=== PATIENT | female | born 1985 | race Caucasian/White ===

== ENCOUNTER 2020-05-29 12:59 | Emergency (ER) | payer BC ==
[2020-05-30] MEDS ORDERED: PHENERGAN 25 MG25 M1 PO (05:50)
== END 2020-05-29 15:45 | disposition home or self-care (01) ==
LOC: ER1 12:59
DX: Z53.21 Procedure and treatment not carried out due to patient leaving prior to being seen by health care provider (principal)

== ENCOUNTER 2020-05-30 03:57 | Emergency (ER) | payer BC ==
[2020-05-30 04:59] LABS: RED BLOOD COUNT 4.72 M/UL (4.00-5.10)
[2020-05-30 05:25] LABS: BUN/CREATININE RATIO 17 (0-10)
[2020-05-30] MEDS ORDERED: PHENERGAN 25 MG25 M1 PO (05:50)
== END 2020-05-30 06:04 | disposition home or self-care (01) ==
LOC: ER1 03:57
PROVIDERS: Family Medicine
DX: R51.9 Headache, unspecified (principal); H43.399 Other vitreous opacities, unspecified eye; I10 Essential (primary) hypertension; Z88.8 Allergy status to other drugs, medicaments and biological substances
CPT/HCPCS: 70450; 80053; 82550; 82553; 83874; 84484; 85025; 93005; 96374; 96375; 99284; J1885; J2060

== ENCOUNTER 2020-05-31 18:33 | Emergency (ER) | payer BC ==
[~2020-05-31 18:33] MED LIST: PHENERGAN 25 MG25 M1 PO
[2020-05-31 21:06] LABS: HEMOGLOBIN 14.6 gm/dl (12.3-15.3); RED BLOOD COUNT 4.65 M/UL (4.00-5.10)
[2020-05-31 21:07] LABS: WHITE BLOOD COUNT 16.6 K/UL (4.5-11.0)
[2020-05-31 21:30] LABS: BUN/CREATININE RATIO 16 (0-10)
== END 2020-06-01 02:27 | disposition home or self-care (01) ==
LOC: ER1 18:33
PROVIDERS: Family Medicine
DX: E87.6 Hypokalemia (principal); D72.829 Elevated white blood cell count, unspecified; Z90.49 Acquired absence of other specified parts of digestive tract; Z79.899 Other long term (current) drug therapy; Z88.4 Allergy status to anesthetic agent
CPT/HCPCS: 80053; 81001; 82550; 82553; 83690; 83735; 83874; 84439; 84443; 84484; 84703; 85025; 96374; 96375; 99284; J2405; J2550; Q9967